=== PATIENT | male | born 1995 | race American Indian/Alaskan Native ===

== ENCOUNTER 2020-03-04 05:22 | Emergency (ER) | payer SELFPAY ==
[2020-03-04] MEDS ORDERED: LACTATED RINGERS 1,000 ML ONE (05:26)
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
[2020-03-04] MEDS ORDERED: TETANUS,DIPHTHERIA TOXOID ADULT 0.5 ML INJ IM ONE (05:50)
[2020-03-04 05:51] LABS: Basophils % (Auto) 1.1 % (0.0-1.8); Hematocrit 41.2 % (35.5-45.6); Hemoglobin 14.1 gm/dl (11.8-15.2); Lymphocytes # (Auto) 1.7 K/mm3 (1.2-5.4); Lymphocytes % (Auto) 39.6 % (13.4-35.0); Mean Corpuscular HGB Conc 34 % (32-34); Mean Corpuscular Volume 95 fl (84-94); Monocytes # (Auto) 0.4 K/mm3 (0.0-0.8); Monocytes % (Auto) 8.6 % (0.0-7.3); Platelet Count 190 K/mm3 (140-440); Red Blood Count 4.32 M/mm3 (3.65-5.03); Red Cell Distribution Width 14.1 % (13.2-15.2)
[2020-03-04] MEDS ORDERED: LACTATED RINGERS 1,000 ML IV ONE (05:57)
[2020-03-04 06:00] LABS: INR 1.05 (0.87-1.13)
[2020-03-04 06:03] LABS: BUN/Creatinine Ratio 10; Blood Urea Nitrogen 9 mg/dL (9-20); Calcium 9.1 mg/dL (8.4-10.2); Hemolysis Index 6
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
[2020-03-04] MEDS ORDERED: ONDANSETRON 4 MG/2 ML INJ ONE (06:16)
[2020-03-04] MEDS ORDERED: fentaNYL 100 MCG/2 ML INJ ONE (06:16)
[2020-03-04] MEDS ORDERED: fentaNYL 100 MCG/2 ML INJ IV ONE ×3 (06:22→06:26)
[2020-03-04] MEDS ORDERED: ONDANSETRON 4 MG/2 ML INJ IV ONE (06:22)
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
[2020-03-04 07:56] VITALS: BP 150/87
== END 2020-03-04 08:00 | disposition other institution (70) ==
LOC: ED 05:22
DX: S01.93XA Puncture wound without foreign body of unspecified part of head, initial encounter (principal); F17.200 Nicotine dependence, unspecified, uncomplicated; Z79.899 Other long term (current) drug therapy; X58.XXXA Exposure to other specified factors, initial encounter; Y93.89 Activity, other specified; Y92.89 Other specified places as the place of occurrence of the external cause; Y99.8 Other external cause status
CPT/HCPCS: 36415; 70450; 70498; 72020; 80048; 85025; 85610; 85730; 86850; 86900; 86901; 90471; 90714; 96365; 96375; 99285; J0690; J2405; J3010; J7120; Q9967; 80320; G0480